=== PATIENT | female | born 1980 | race Caucasian/White ===

== ENCOUNTER → 2021-11-28 | Outpatient (REF) | payer OTHER | LOC: M SFHCWAGY 17:03 | PROVIDERS: ATTEND Advanced Practice Midwife | DX: Z01.419 Encounter for gynecological examination (general) (routine) without abnormal findings (principal); Z12.4 Encounter for screening for malignant neoplasm of cervix ==

== ENCOUNTER → 2021-12-13 | Outpatient (CLI) | payer OTHER | LOC: M WHC 15:18 | PROVIDERS: ATTEND Advanced Practice Midwife | DX: Z12.31 Encounter for screening mammogram for malignant neoplasm of breast (principal) ==

== ENCOUNTER → 2022-02-04 | Outpatient (CLI) | payer OTHER ==
[2022-02-04 15:24] LABS: HEMATOCRIT 46.6 % (36.0-47.0); HEMOGLOBIN 14.8 g/dl (12.0-15.5); MEAN CORPUSCULAR HEMOGLOBIN 30.9 pg (27.0-33.0); MEAN CORPUSCULAR HGB CONC 31.8 g/dl (32.0-36.5); MEAN CORPUSCULAR VOLUME 97.3 fl (80.0-96.0); PLATELET COUNT, AUTOMATED 220 10^3/uL (150-450); RED BLOOD COUNT 4.79 10^6/uL (4.00-5.40); WHITE BLOOD COUNT 7.1 10^3/uL (4.0-10.0)
[2022-02-04 15:50] LABS: HEMOGLOBIN A1c 5.1 %
[2022-02-04 16:02] LABS: ALBUMIN 4.3 GM/DL (3.2-5.2); ALT/SGPT 23 U/L (12-78); BILIRUBIN,TOTAL 0.3 MG/DL (0.2-1.0); BLOOD UREA NITROGEN 12 MG/DL (7-18); CARBON DIOXIDE LEVEL 27 MEQ/L (21-32); CHLORIDE LEVEL 108 MEQ/L (98-107); CREATININE FOR GFR 0.77 MG/DL (0.55-1.30); GLOMERULAR FILTRATION RATE > 60.0 (>58); GLUCOSE, FASTING 91 MG/DL (70-100); HCG, SERUM QUANTITATIVE < 1.0 MIU/ML; POTASSIUM SERUM 3.9 MEQ/L (3.5-5.1); SODIUM LEVEL 140 MEQ/L (136-145); TOTAL PROTEIN 7.4 GM/DL (6.4-8.2)
[2022-02-04 16:05] LABS: PROGESTERONE 0.42 NG/ML; PROLACTIN 7.2 NG/ML; TESTOSTERONE 21 NG/DL (14-76)
[2022-02-04 16:06] LABS: ESTRADIOL < 19.0 PG/ML; LUTEINIZING HORMONE 8.1 mIU/mL
[2022-02-04 16:07] LABS: FOLLICLE STIMULATING HORMONE 15.6 mIU/mL
[2022-02-04 16:18] LABS: HEPATITIS B SURFACE ANTIGEN NEGATIVE (NEGATIVE)
[2022-02-04 16:42] LABS: HEPATITIS C VIRUS ABY INDEX 0.1 INDEX (<0.8)
[2022-02-04 16:43] LABS: HEPATITIS B CORE ANTIBODY IGM NEGATIVE (NEGATIVE)
[2022-02-04 16:45] LABS: HIV 1&2 SCREEN CENTAUR NEGATIVE (NEGATIVE)
== END ==
LOC: M LAB 13:53
PROVIDERS: ATTEND Obstetrics & Gynecology Reproductive Endocrinology
DX: Z31.41 Encounter for fertility testing (principal)

== ENCOUNTER → 2022-03-21 | Outpatient (CLI) | payer OTHER ==
[2022-03-21 17:20] LABS: HEMATOCRIT 43.9 % (36.0-47.0); HEMOGLOBIN 14.2 g/dl (12.0-15.5); MEAN CORPUSCULAR HEMOGLOBIN 30.7 pg (27.0-33.0); MEAN CORPUSCULAR HGB CONC 32.3 g/dl (32.0-36.5); PLATELET COUNT, AUTOMATED 188 10^3/uL (150-450); RED BLOOD COUNT 4.62 10^6/uL (4.00-5.40); WHITE BLOOD COUNT 8.1 10^3/uL (4.0-10.0)
[2022-03-21 18:07] LABS: ALBUMIN 3.8 GM/DL (3.2-5.2); ALT/SGPT 20 U/L (12-78); BILIRUBIN,TOTAL 0.3 MG/DL (0.2-1.0); BLOOD UREA NITROGEN 8 MG/DL (7-18); CALCIUM LEVEL 8.8 MG/DL (8.5-10.1); CARBON DIOXIDE LEVEL 25 MEQ/L (21-32); CHLORIDE LEVEL 108 MEQ/L (98-107); CREATININE FOR GFR 0.84 MG/DL (0.55-1.30); GLOMERULAR FILTRATION RATE > 60.0 (>58); GLUCOSE, FASTING 90 MG/DL (70-100); HCG, SERUM QUANTITATIVE 131079 MIU/ML; POTASSIUM SERUM 4.3 MEQ/L (3.5-5.1); SODIUM LEVEL 137 MEQ/L (136-145)
== END ==
LOC: M PLALAB 15:55
PROVIDERS: ATTEND Obstetrics & Gynecology
DX: O26.851 Spotting complicating pregnancy, first trimester (principal)

== ENCOUNTER → 2022-03-23 | Outpatient (CLI) | payer OTHER | LOC: M LAB 14:41 | PROVIDERS: ATTEND Obstetrics & Gynecology | DX: O26.851 Spotting complicating pregnancy, first trimester (principal) ==

== ENCOUNTER → 2022-04-26 | Outpatient (CLI) | payer OTHER ==
[2022-04-26 17:12] LABS: BASO % 0.3 % (0.0-1.0); EOS # 0.1 10^3/uL (0.0-0.5); EOS % 0.8 % (0.0-3.0); HEMATOCRIT 41.7 % (36.0-47.0); HEMOGLOBIN 13.4 g/dl (12.0-15.5); LYMPH # 1.8 10^3/uL (1.5-5.0); LYMPH % 24.1 % (24.0-44.0); MEAN CORPUSCULAR HEMOGLOBIN 29.8 pg (27.0-33.0); MEAN CORPUSCULAR HGB CONC 32.1 g/dl (32.0-36.5); MEAN CORPUSCULAR VOLUME 92.9 fl (80.0-96.0); MONO # 0.4 10^3/uL (0.0-0.8); MONO % 5.4 % (2.0-8.0); NEUTROPHILS # 5.3 10^3/uL (1.5-8.5); PLATELET COUNT, AUTOMATED 204 10^3/uL (150-450); RED BLOOD COUNT 4.49 10^6/uL (4.00-5.40); WHITE BLOOD COUNT 7.6 10^3/uL (4.0-10.0)
[2022-04-26 18:27] LABS: HEPATITIS C VIRUS ABY INDEX 0.1 INDEX (<0.8); HIV 1&2 SCREEN CENTAUR NEGATIVE (NEGATIVE)
[2022-04-26 18:52] LABS: GC DNA AMPLIFICATION NEGATIVE (NEGATIVE)
== END ==
LOC: M PLALAB 15:24
PROVIDERS: ATTEND Obstetrics & Gynecology
DX: Z34.80 Encounter for supervision of other normal pregnancy, unspecified trimester (principal); Z3A.00 Weeks of gestation of pregnancy not specified

== ENCOUNTER → 2022-05-17 | Outpatient (CLI) | payer OTHER | LOC: M RAD 10:15 | PROVIDERS: ATTEND Obstetrics & Gynecology | DX: O36.80X0 Pregnancy with inconclusive fetal viability, not applicable or unspecified (principal) ==

== ENCOUNTER → 2022-06-10 | Outpatient (CLI) | payer OTHER | LOC: M WHC 12:38 | PROVIDERS: ATTEND Specialist | DX: Z36.3 Encounter for antenatal screening for malformations (principal); Z3A.19 19 weeks gestation of pregnancy ==

== ENCOUNTER → 2022-06-25 | Outpatient (CLI) | payer OTHER | LOC: M WHC 06-24 09:28 | PROVIDERS: ATTEND Obstetrics & Gynecology | DX: O30.042 Twin pregnancy, dichorionic/diamniotic, second trimester (principal) ==

== ENCOUNTER → 2022-07-24 | Outpatient (CLI) | payer OTHER | LOC: M WHC 07:51 | PROVIDERS: ATTEND Advanced Practice Midwife | DX: O30.042 Twin pregnancy, dichorionic/diamniotic, second trimester (principal) ==

== ENCOUNTER → 2022-07-30 | Outpatient (CLI) | payer OTHER ==
[2022-07-30 14:20] LABS: HEMOGLOBIN 11.5 g/dl (12.0-15.5); MEAN CORPUSCULAR HEMOGLOBIN 30.4 pg (27.0-33.0); MEAN CORPUSCULAR HGB CONC 31.1 g/dl (32.0-36.5); MEAN CORPUSCULAR VOLUME 97.9 fl (80.0-96.0); PLATELET COUNT, AUTOMATED 149 10^3/uL (150-450); RED BLOOD COUNT 3.78 10^6/uL (4.00-5.40)
== END ==
LOC: M PLALAB 10:06
PROVIDERS: ATTEND Advanced Practice Midwife
DX: O30.042 Twin pregnancy, dichorionic/diamniotic, second trimester (principal)

== ENCOUNTER → 2022-08-12 | Outpatient (CLI) | payer OTHER | LOC: M LAB 09:06 | PROVIDERS: ATTEND Advanced Practice Midwife | DX: O99.810 Abnormal glucose complicating pregnancy (principal) ==

== ENCOUNTER → 2022-08-21 | Outpatient (CLI) | payer OTHER | LOC: M WHC 08:21 | PROVIDERS: ATTEND Advanced Practice Midwife | DX: O30.042 Twin pregnancy, dichorionic/diamniotic, second trimester (principal) ==

== ENCOUNTER → 2022-09-18 | Outpatient (CLI) | payer OTHER | LOC: M WHC 08:02 | PROVIDERS: ATTEND Advanced Practice Midwife | DX: O30.042 Twin pregnancy, dichorionic/diamniotic, second trimester (principal) ==

== ENCOUNTER 2022-09-26 14:49 | Outpatient (CLI) | payer OTHER ==
[~2022-09-26] VITALS: Ht 157.5 cm; Wt 96.3 kg
[2022-09-26 15:13] VITALS: BP 138/95
[2022-09-26] MEDS ORDERED: FOLI1TAB11 PO (15:19)
[2022-09-26] MEDS ORDERED: NOXI1TAB PO (15:19)
[2022-09-26] MEDS ORDERED: ECOT81TA5 PO (15:19)
[2022-09-26] MEDS ORDERED: PRENTAB9 PO (15:19)
[2022-09-26] MEDS ORDERED: COQ1200C PO (15:19)
[2022-09-26] MEDS ORDERED: OMEP10CASR PO (15:19)
[2022-09-26] MEDS ORDERED: HOME MED LIST COMPLETE! XX SCH (15:20)
[2022-09-26 15:31] VITALS: BP 138/89
[2022-09-26 15:45] VITALS: BP 134/82
[2022-09-26 16:00] VITALS: BP 131/85
[2022-09-26 16:14] VITALS: BP 131/86
== END 2022-09-26 16:30 | disposition home or self-care (01) ==
LOC: M LDO 14:49
PROVIDERS: ATTEND Obstetrics & Gynecology
DX: O26.893 Other specified pregnancy related conditions, third trimester (principal); R60.9 Edema, unspecified; O09.523 Supervision of elderly multigravida, third trimester; O30.043 Twin pregnancy, dichorionic/diamniotic, third trimester; Z3A.33 33 weeks gestation of pregnancy
CPT/HCPCS: 59025; G0378; G0463

== ENCOUNTER → 2022-10-10 | Outpatient (CLI) | payer OTHER ==
[~2022-10-10] MED LIST: COQ1200C PO; D 50CAP2 PO; ECOT81TA5 PO; FERR325T19 PO; FOLI1TAB11 PO; NOXI1TAB PO; OMEP10CASR PO; PRENTAB9 PO
== END ==
LOC: M WHC 12:02
PROVIDERS: ATTEND Obstetrics & Gynecology
DX: O30.043 Twin pregnancy, dichorionic/diamniotic, third trimester (principal); Z3A.35 35 weeks gestation of pregnancy

== ENCOUNTER → 2022-10-10 | Outpatient (REF) | payer OTHER | LOC: M SFHCWAGY 09:31 | PROVIDERS: ATTEND Obstetrics & Gynecology | DX: O30.043 Twin pregnancy, dichorionic/diamniotic, third trimester (principal) ==

== ENCOUNTER 2022-10-16 13:42 | Inpatient (IN) | payer OTHER ==
[2022-10-16] VITALS (53 sets, daily range): BP systolic 127–195; BP diastolic 65–111
[~2022-10-16] VITALS: Ht 157.5 cm; Wt 105.2 kg
[2022-10-16] MEDS ORDERED: hydrALAZINE 20MG/ML 1ML VIAL IV ONE ×2 (14:30→15:25)
[2022-10-16] MEDS ORDERED: ceFAZolin SOD 2 GM in IV 1 EA IV ONE (14:30)
[2022-10-16] MEDS ORDERED: BICITRA 30ML SOLN UDC PO ONE (14:30)
[2022-10-16] MEDS ORDERED: BETAMETHASONE SOLUSPAN 6MG/ML 5ML VIAL IM ONE (14:30)
[2022-10-16] MEDS ORDERED: TRANEXAMIC ACID INJection 1,000 MG in NS 100 ML IV PRN (14:30)
[2022-10-16] MEDS ORDERED: CARBOPROST TROMETHAMINE 250 MCG/ML AMP IM PRN (14:30)
[2022-10-16] MEDS ORDERED: OXYTOCIN DRIP 30 UNITS in IV 1 EA IV PRN ×4 (14:30)
[2022-10-16] MEDS ORDERED: OXYTOCIN INJ 10UNITS/ML 1ML VIAL IM PRN (14:30)
[2022-10-16 14:50] LABS: HEMATOCRIT 37.6 % (36.0-47.0); HEMOGLOBIN 12.4 g/dl (12.0-15.5); MEAN CORPUSCULAR HEMOGLOBIN 30.9 pg (27.0-33.0); MEAN CORPUSCULAR VOLUME 93.8 fl (80.0-96.0); PLATELET COUNT, AUTOMATED 105 10^3/uL (150-450); RED BLOOD COUNT 4.01 10^6/uL (4.00-5.40); WHITE BLOOD COUNT 7.8 10^3/uL (4.0-10.0)
[2022-10-16 15:30] LABS: LDH LACTATE DEHYDROGENASE 246 U/L (120-246)
[2022-10-16 15:31] LABS: ALT/SGPT 20 U/L (7.0-40); AST/SGOT 34 U/L (<34); BILIRUBIN,TOTAL 0.4 MG/DL (0.3-1.2); CREATININE FOR GFR 0.92 MG/DL (0.55-1.30); GLOMERULAR FILTRATION RATE > 60.0 (>58)
[2022-10-16] MEDS: LR 1,000 ML IV SCH (15:35)
[2022-10-16] MEDS ORDERED: LABETALOL 100MG/20ML VIAL IV STA ×3 (15:36→16:21)
[2022-10-16 15:55] LABS: URIC ACID 8.1 MG/DL (3.1-7.8)
[2022-10-16 16:03] LABS: TOTAL PROTEIN,RANDOM URINE 13.7 MG/DL (0.0-14.0)
[2022-10-16 16:08] LABS: CREATININE,RANDOM URINE 58.5 MG/DL
[2022-10-16] MEDS ORDERED: MAG Sulf (L&D) 4 GM/100 ML 4 GM in IV 1 EA IV ONE (16:10)
[2022-10-16] MEDS: MAG Sulf (OBGYN) 20GM/500ML 20,000 MG in IV 1 EA IV SCH (16:46)
[2022-10-16] MEDS ORDERED: MORPHINE PRES-FREE INJ 10 MG/10 ML VIAL As Ordered ONE (17:33)
[2022-10-16] MEDS ORDERED: OXYTOCIN INJ 10UNITS/ML 1ML VIAL As Ordered ONE (17:33)
[2022-10-16] MEDS ORDERED: PHENYLephrine 500MCG 5ML (100MCG/ML) SYRINGE As Ordered ONE (17:40)
[2022-10-16] MEDS ORDERED: fentaNYL 100 MCG/2 ML INJECTION IV PRN (17:55)
[2022-10-16] MEDS: SLF 3 ML SYR IV SCH (17:55)
[2022-10-16] MEDS ORDERED: MEPERIDINE 25 MG/ML 1ML VIAL IV PRN (17:55)
[2022-10-16] MEDS ORDERED: diphenhydrAMINE 50MG/ML VIAL IV PRN (17:55)
[2022-10-16] MEDS ORDERED: ONDANSETRON 4MG 2ML VIAL IV PRN ×2 (17:55→20:15)
[2022-10-16] MEDS ORDERED: oxyCODONE 5MG TAB PO PRN (17:55)
[2022-10-16] MEDS ORDERED: NALOXONE INJ 0.4MG/1ML VIAL IV PRN ×2 (17:55)
[2022-10-16] MEDS ORDERED: **NOTE PATIENT COMMENT** MISC XX SCH (17:55)
[2022-10-16] MEDS ORDERED: RHOGAM 300MCG (1500IU) INJ IM SCH (18:10)
[2022-10-16] MEDS ORDERED: SIMETHICONE 80MG CHEW TAB PO PRN (18:10)
[2022-10-16] MEDS ORDERED: PERCOCET 5MG/325MG TAB PO PRN ×2 (18:10)
[2022-10-16] MEDS ORDERED: OXYTOCIN DRIP 30 UNITS in IV 1 EA IV SCH ×4 (18:10)
[2022-10-16] MEDS ORDERED: OXYTOCIN 30UNITS IN 0.9% NaCl 500ML IV BAG As Ordered ONE (18:46)
[2022-10-16] MEDS ORDERED: METOCLOPRAMIDE INJ 10MG/2ML VIAL As Ordered ONE (19:41)
[2022-10-16] MEDS: METOCLOPRAMIDE INJ 10MG/2ML VIAL IV PRN (19:44)
[2022-10-16] MEDS ORDERED: KETOROLAC 30 MG/ML 1ML VIAL IV SCH (20:00)
[2022-10-16] MEDS ORDERED: TRANEXAMIC ACID 100 MG/ML 10ML VIAL As Ordered ONE (20:01)
[2022-10-16] MEDS ORDERED: ONDANSETRON 4MG 2ML VIAL As Ordered ONE (20:12)
[2022-10-16] MEDS ORDERED: PROMETHAZINE 25MG/ML 1ML VIAL As Ordered ONE (20:26)
[2022-10-16] MEDS ORDERED: PROMETHAZINE 25MG/ML 1ML VIAL IV PRN (20:30)
[2022-10-16] MEDS ORDERED: AZITHROMYCIN INJ 500 MG, VIAL MATE ADAPTER 1 EACH in NS 250 ML IV ONE (20:55)
[2022-10-17] VITALS (33 sets, daily range): BP systolic 115–174; BP diastolic 59–91
[2022-10-17 00:58] LABS: HEMATOCRIT 27.5 % (36.0-47.0); MEAN CORPUSCULAR HGB CONC 32.4 g/dl (32.0-36.5); MEAN CORPUSCULAR VOLUME 95.8 fl (80.0-96.0); PLATELET COUNT, AUTOMATED 141 10^3/uL (150-450); RED BLOOD COUNT 2.87 10^6/uL (4.00-5.40); WHITE BLOOD COUNT 18.3 10^3/uL (4.0-10.0)
[2022-10-17 00:59] LABS: HEMOGLOBIN 8.9 g/dl (12.0-15.5)
[2022-10-17 01:03] LABS: INR 1.12; PROTHROMBIN TIME 14.6 SECONDS (12.5-14.5)
[2022-10-17 01:04] LABS: PARTIAL THROMBOPLASTIN TIME 27.8 SECONDS (24.8-34.2)
[2022-10-17] MEDS: DOCUSATE SODIUM 100MG CAPSULE PO SCH ×3 (01:10→21:36)
[2022-10-17] MEDS: KETOROLAC 30 MG/ML 1ML VIAL IV SCH ×4 (01:10→18:47)
[2022-10-17] MEDS: METOCLOPRAMIDE INJ 10MG/2ML VIAL IV PRN (01:51)
[2022-10-17] MEDS: SLF 3 ML SYR IV SCH ×2 (01:55→09:55)
[2022-10-17] MEDS: MAG Sulf (OBGYN) 20GM/500ML 20,000 MG in IV 1 EA IV SCH (03:06)
[2022-10-17] MEDS: LR 1,000 ML IV SCH ×2 (03:06→06:30)
[2022-10-17 06:02] LABS: HEMATOCRIT 26.8 % (36.0-47.0); HEMOGLOBIN 8.6 g/dl (12.0-15.5); MEAN CORPUSCULAR HEMOGLOBIN 30.9 pg (27.0-33.0); MEAN CORPUSCULAR HGB CONC 32.1 g/dl (32.0-36.5); MEAN CORPUSCULAR VOLUME 96.4 fl (80.0-96.0); PLATELET COUNT, AUTOMATED 138 10^3/uL (150-450); RED BLOOD COUNT 2.78 10^6/uL (4.00-5.40); WHITE BLOOD COUNT 18.6 10^3/uL (4.0-10.0)
[2022-10-17] MEDS: PRENATAL VITAMINS CHEWABLE TABLET PO SCH (10:00)
[2022-10-17] MEDS: LABETALOL 200 MG TAB PO SCH ×2 (10:46→21:36)
[2022-10-18] VITALS (8 sets, daily range): BP systolic 137–161; BP diastolic 70–88
[2022-10-18] MEDS: ACETAMINOPHEN 500 MG TAB PO PRN ×3 (00:58→20:48)
[2022-10-18] MEDS: IBUPROFEN 800 MG TAB PO SCH ×3 (03:12→18:36)
[2022-10-18] MEDS: LABETALOL 200 MG TAB PO SCH ×2 (08:03→20:47)
[2022-10-18] MEDS: PRENATAL VITAMINS CHEWABLE TABLET PO SCH (08:03)
[2022-10-18] MEDS: DOCUSATE SODIUM 100MG CAPSULE PO SCH ×2 (08:03→20:56)
[2022-10-18] MEDS ORDERED: MEASLES,MUMPS,RUBELLA VACCINE INJ (MMR-II) SC.IMMUN ONE (09:00)
[2022-10-19 02:00] VITALS: BP 133/71
[2022-10-19] MEDS: IBUPROFEN 800 MG TAB PO SCH ×2 (03:58→11:47)
[2022-10-19 06:00] VITALS: BP 136/67
[2022-10-19 08:11] VITALS: BP 152/90
[2022-10-19] MEDS: DOCUSATE SODIUM 100MG CAPSULE PO SCH (08:11)
[2022-10-19] MEDS: PRENATAL VITAMINS CHEWABLE TABLET PO SCH (08:11)
[2022-10-19] MEDS: LABETALOL 200 MG TAB PO SCH (08:11)
[2022-10-19] MEDS ORDERED: PERCOCET PO (12:27)
[2022-10-19] MEDS ORDERED: IBUP80TA PO (12:27)
[2022-10-19] MEDS ORDERED: LABE20TAB PO (12:31)
== END 2022-10-19 14:26 | disposition home or self-care (01) | DRG 540 ==
LOC: M LDO 13:42 → M LDI 14:28 → M OBS 10-17 14:19
PROVIDERS: ADMIT Advanced Practice Midwife; ATTEND Specialist
PROC: 10D00Z1 Extraction of Products of Conception, Low, Open Approach (ICD-10-PCS; principal; 2022-10-16 17:00)
DX: O14.14 Severe pre-eclampsia complicating childbirth (principal); O34.211 Maternal care for low transverse scar from previous cesarean delivery; O09.523 Supervision of elderly multigravida, third trimester; O99.824 Streptococcus B carrier state complicating childbirth; O30.043 Twin pregnancy, dichorionic/diamniotic, third trimester; O32.1XX1 Maternal care for breech presentation, fetus 1; Z37.2 Twins, both liveborn; Z53.09 Procedure and treatment not carried out because of other contraindication; O72.1 Other immediate postpartum hemorrhage; Z3A.36 36 weeks gestation of pregnancy; Z88.2 Allergy status to sulfonamides; Z91.040 Latex allergy status; Z88.8 Allergy status to other drugs, medicaments and biological substances

== ENCOUNTER → 2022-10-16 | Outpatient (CLI) | payer OTHER | LOC: M WHC 10:28 | PROVIDERS: ATTEND Advanced Practice Midwife | DX: O30.042 Twin pregnancy, dichorionic/diamniotic, second trimester (principal) ==

== ENCOUNTER → 2023-05-08 | Day surgery (SDC) | payer OTHER ==
[~2023-05-08] VITALS: Ht 157.5 cm; Wt 74.0 kg
[~2023-05-08] MED LIST changes: +IBUP-1022 PO; +IBUP80TA PO; +LABE20TAB PO; +LR 1,000 ML IV SCH; +MIDAZOLAM INJ 2MG/2ML VIAL As Ordered ONE; +ONDANSETRON 4MG 2ML VIAL IV PRN; +OXYC1TAB23 PO; +PERCOCET 5MG/325MG TAB PO PRN; +PERCOCET PO; +fentaNYL 100 MCG/2 ML INJECTION As Ordered ONE; +fentaNYL 100 MCG/2 ML INJECTION IV PRN; +oxyCODONE 5MG TAB PO PRN
[2023-05-08 06:48] LABS: HEMATOCRIT 43.2 % (36.0-47.0); HEMOGLOBIN 13.6 g/dl (12.0-15.5); MEAN CORPUSCULAR HEMOGLOBIN 29.5 pg (27.0-33.0); MEAN CORPUSCULAR HGB CONC 31.5 g/dl (32.0-36.5); MEAN CORPUSCULAR VOLUME 93.7 fl (80.0-96.0); PLATELET COUNT, AUTOMATED 203 10^3/uL (150-450); RED BLOOD COUNT 4.61 10^6/uL (4.00-5.40); WHITE BLOOD COUNT 6.4 10^3/uL (4.0-10.0)
[2023-05-08 09:20] VITALS: BP 119/73; TEMP 97.9; O2SAT 100
== END | disposition home or self-care (01) ==
LOC: M SDC 06:02
PROVIDERS: ATTEND Specialist
DX: Z30.2 Encounter for sterilization (principal); Z88.0 Allergy status to penicillin; Z91.040 Latex allergy status; Z88.2 Allergy status to sulfonamides; Z88.8 Allergy status to other drugs, medicaments and biological substances; Z79.899 Other long term (current) drug therapy
CPT/HCPCS: 36415; 58661; 81025; 85027; 88302; J0665; J2250; J3010